=== PATIENT | male | born 1950 | race Two or more races ===

== ENCOUNTER 2017-03-16 09:57 | Outpatient (CLI) | payer MEDICARE, OTHER ==
[~2017-03-16 09:57] MED LIST: ASPIRIN81 MG ORAL; CRESTOR10 M1 ORAL; NORVASC5 MG ORAL; VITAMIN A; VITAMIN D250000 UNI1 ORAL
--- NOTE | 2017-03-16 17:26 | GI Progress Note ---
Assessment/Plan Problems: (1) Encounter for diagnostic endoscopy ICD Codes: Z01.818 - Encounter for other preprocedural examination SNOMED: 987881710, 074279102 (2) Gastric adenoma ICD Codes: D13.1 - Benign neoplasm of stomach SNOMED: 11685605, 12238492 (3) Gastric polyp ICD Codes: K31.7 - Polyp of stomach and duodenum SNOMED: 24419066 Status: stable Status Narrative Discussed with Dr. Blum. Assessment/Plan EGD scheduled 03/19/17. - NPO @ [place] day prior procedure explained to patient. Subjective Gastrointestinal/Abdominal: Reports: no symptoms Subjective s/p EGD with dx gastric adenoma here for repeat EGD Objective T 98 BP 143/78 P 71 99 RA General Appearance: no apparent distress, alert Cardiovascular: normal rate Respiratory/Chest: normal breath sounds, no respiratory distress Abdominal Exam: normal bowel sounds, non tender, soft Extremities: normal range of motion Ruth Head N.P. Mar 16, 2017 17:26
== END 2017-03-16 10:30 | disposition home or self-care (01) ==
LOC: PAN 09:57
DX: Z01.818 Encounter for other preprocedural examination (principal); D13.1 Benign neoplasm of stomach; K31.7 Polyp of stomach and duodenum
CPT/HCPCS: 99211

== ENCOUNTER 2017-03-19 07:53 | Day surgery (SDC) | payer MEDICARE, OTHER ==
[~2017-03-19] VITALS: Ht 182.9 cm; Wt 75.7 kg
[2017-03-19] VITALS (8 sets, daily range): BP systolic 119–146; BP diastolic 70–82
--- NOTE | 2017-03-19 06:22 | Anethesia Preoperative Eval ---
Anesthesia Pre-op PMH/ROS General Date of Evaluation: Mar 19, 2017 Time of Evaluation: 06:18 Anesthesiologist: john ASA Score: ASA 3 Mallampati Score Class I : Soft palate, uvula, fauces, pillars visible Class II: Soft palate, uvula, fauces visible Class III: Soft palate, base of uvula visible Class IV: Only hard plate visible Mallampati Classification: Class II Surgeon: kirstin Diagnosis: gastric adenoma Surgical Procedure: egd Anesthesia History: none Social History: smoking - ex smoker, drug use Family History: no anesthesia problems Allergies: Coded Allergies: No Known Allergies (Unverified , 12/17/15) Medications: see eMAR Past Medical History Cardiovascular: Reports: HTN, arrhythmia, other - hypercholesterolemia Gastrointestinal/Genitourinary: Reports: other - gastritis colon polyps hernia Neurologic/Psychiatric: Reports: other - substance abuse Anesthesia Pre-op Phys. Exam Physician Exam Constitutional: NAD Neurologic: CN 2-12 intact Cardiovascular: RRR Respiratory: CTA Gastrointestinal: S/NT/ND Airway Exam Mallampati Score: Class II MO: full Neck: supple TMD: 2fb ROM: full Teeth: intact Anesthesia Pre-op A/P Studies Pre-op Studies: EKG - sinus castillo Risk Assessment & Plan Assessment: gastric adenoma Plan: egd Status Change Before Surgery: No Pre-Antibiotics Drug: NERY Lopez Mar 19, 2017 06:22
--- NOTE | 2017-03-19 09:29 | Pre-Procedure Note/Attestation ---
Pre-Procedure Note/Attestation Complete Prior to Procedure Planned Procedure: not applicable Procedure Narrative: egd Indications for Procedure Pre-Operative Diagnosis: gastric polyp Attestation I attest that I discussed the nature of the procedure; its benefits; risks and complications; and alternatives (and the risks and benefits of such alternatives ), prior to the procedure, with the patient (or the patient's legal used equipment sales representative). I attest that, if there was a reasonable possibility of needing a blood transfusion, the patient (or the patient's legal used equipment sales representative) was given the [facility] standardized written summary, pursuant to the Cristóbal [place] Blood Safety Act ([place] Health and Safety Code # 1645, as amended). I attest that I re-evaluated the patient just prior to the surgery and that there has been no change in the patient's H&P, except as documented below: KRISHNA HAIRSTON Mar 19, 2017 09:29
--- NOTE | 2017-03-19 09:30 | Short Stay Surgery H&P ---
History of Present Illness History of Present Illness Chief Complaint gastric polyp HPI Clayton Ramos is a 66 year old male who was admitted on for Gastric Adenoma Patient History Allergies: Coded Allergies: No Known Allergies (Unverified , 12/17/15) PAST MEDICAL HISTORY: (1) Gastritis (2) Colon polyps (3) Gastric polyp (4) Gastric adenoma (5) Encounter for diagnostic endoscopy Past Surgeries: Social History: Medication History Scheduled Aspirin* (Aspirin*), 81 MG ORAL DAILY, (Reported) Rosuvastatin Calcium (Crestor), 10 MG ORAL DAILY, (Reported) Review of Systems Cardiovascular: Reports: no symptoms Respiratory: Reports: no symptoms Skeletal: Reports: no symptoms Gastrointestinal: Reports: no symptoms Genitourinary: Reports: no symptoms Neurologic: Reports: no symptoms Endocrine: Reports: no symptoms Hematologic: Reports: no symptoms Physical Exam Vital Signs Last Vital Signs Date Time Temp Pulse Resp B/P Pulse Ox O2 Delivery O2 Flow Rate FiO2 03/19/17 08:35 97.3 64 20 119/72 99 Room Air Skin: normal HENT: normal Heart: normal Lungs: normal Abdomen: normal Extremities: normal Plan Plan of Care egd Final Diagnosis: Attestation Are the patient's medical conditions optimized for surgery? Attestation Response: yes KRISHNA HAIRSTON Mar 19, 2017 09:30
[2017-03-19] MEDS ORDERED: Lidocaine 1% MPF 10mg/ml 5ml ONE (09:45)
[2017-03-19] MEDS ORDERED: Propofol 10mg/ml 20ml IV ONE (09:45)
[2017-03-19] MEDS ORDERED: Hydromorphone 0.5mg/0.5ml inj IVP PRN (10:00)
[2017-03-19] MEDS ORDERED: Midazolam 2mg/2ml Inj IVP PRN (10:00)
[2017-03-19] MEDS ORDERED: DiphenhydrAMINE 50mg/ml Inj IVP PRN (10:00)
[2017-03-19] MEDS ORDERED: Atropine Inj 1mg/10ml Syr IV PRN (10:00)
--- NOTE | 2017-03-19 10:06 | Endoscopy Procedure Note ---
Endoscopy Procedure Note Indication for Procedure: gastric polyp Procedures Performed: EGD Operative Findings/Diagnosis: same Specimen: yes Pt Tolerated Procedure Well: Yes Estimated Blood Loss: none Anesthesiologist: chase gonzalez Anesthesia: MAC Implant(s) used?: No 50 yrs or older w/o bx or poly: Not Applicable 10yrs. F/U not recommended: Not Applicable KRISHNA HAIRSTON Mar 19, 2017 10:06
--- NOTE | 2017-03-19 10:09 | Immediate Post-Op Evaluation ---
Immediate Post-Op Evalulation Immediate Post-Op Evalulation Procedure: egd Date of Evaluation: Mar 19, 2017 Time of Evaluation: 10:21 IV Fluids: 0.9ns 400ml Blood Products: none Estimated Blood Loss: negligible Blood Pressure Systolic: 127 Blood Pressure Diastolic: 71 Pulse Rate: 61 Respiratory Rate: 18 O2 Sat by Pulse Oximetry: 100 Temperature (Fahrenheit): 97.2 Pain Score (1-10): 0 Nausea: No Vomiting: No Complications none Patient Status: awake, reacts, patent Hydration Status: adequate Drug: NERY Lopez Mar 19, 2017 10:09
--- NOTE | 2017-03-19 10:22 | 48 Hour Post Anesthesia Eval ---
Post Anesthesia Evaluation Procedure: egd Date of Evaluation: Mar 19, 2017 Time of Evaluation: 10:25 Blood Pressure Systolic: 130 0: 70 Pulse Rate: 62 Respiratory Rate: 18 Temperature (Fahrenheit): 97.2 O2 Sat by Pulse Oximetry: 100 Airway: patent Nausea: No Vomiting: No Pain Intensity: 0 Hydration Status: adequate Cardiopulmonary Status: stable Mental Status/LOC: patient returned to baseline Post-Anesthesia Complications: none Follow-up care needed: N/A NERY OCONNOR Mar 19, 2017 10:22
--- NOTE | 2017-03-19 11:45 | Procedure Note ---
DATE OF PROCEDURE: 03/19/2017 SURGEON: Yves Blum M.D. PROCEDURE: Upper endoscopy with biopsy, polypectomy, and hemostasis. ANESTHESIA: Per . INSTRUMENT: Olympus adult flexible colonoscope. INDICATION: Gastric polyp. The procedure, risks, benefits, and possible consequences, including hemorrhage, aspiration, perforation and infection, and alternative treatments, were explained to the patient/legal guardian by Dr. Yves Blum and the patient/legal guardian understood and accepted these risks. DESCRIPTION OF PROCEDURE: After informed consent was obtained, the patient was adequately sedated, Olympus upper endoscope was advanced from mouth to the second portion of the duodenum and retroflexion maneuver was performed in the stomach. The patient has diffuse atrophic gastritis. The patient had evidence of persistent polyp in the pre-pyloric region. There was one at about 9 o'clock position. Another one about 2 o'clock position and 9 o'clock position was removed with the snare polypectomy technique and placed in and the 2 o'clock also was removed in piecemeal fashion and placed in . The patient also had evidence of some inflammatory changes in the antrum of the mucosa which was biopsied to rule out any dysplasia. Then after we did all that we used the tip of the snare to cauterize the rest of the area around the polypectomy site. The patient tolerated the procedure without any complication. SUMMERY OF FINDINGS: Atrophy, gastritis. Persistent polyps in the antrum. See above for details. RECOMMENDATIONS: Follow biopsy results and we will decide based on the results what we are going to do. One option will be for patient to come back every three months and have this piecemeal removal of the recurrent polyp but I guess at one point, if this continues to be like this, the patient might benefit from a partial antrectomy to present to the future gastric malignancy. Yves Blum M.D. DR: DUSTIN JOB#: [id number] CC:
== END 2017-03-19 11:40 | disposition home or self-care (01) ==
LOC: GAS 07:53
DX: D13.1 Benign neoplasm of stomach (principal); K29.40 Chronic atrophic gastritis without bleeding; I10 Essential (primary) hypertension; R00.1 Bradycardia, unspecified; E78.00 Pure hypercholesterolemia, unspecified; F19.10 Other psychoactive substance abuse, uncomplicated; Z86.010 Personal history of colon polyps; Z87.891 Personal history of nicotine dependence; Z79.82 Long term (current) use of aspirin
CPT/HCPCS: 43239; 43251; 93005; J2704; 94003; 94150

== ENCOUNTER 2017-03-30 09:13 | Outpatient (CLI) | payer MEDICARE, OTHER ==
[2017-03-30 09:43] VITALS: BP 126/54
--- NOTE | 2017-03-30 10:00 | GI Progress Note ---
Assessment/Plan Problems: (1) Gastric polyp ICD Codes: K31.7 - Polyp of stomach and duodenum SNOMED: 48970553 (2) Gastric adenoma ICD Codes: D13.1 - Benign neoplasm of stomach SNOMED: 45771821, 50308102 Status: stable Status Narrative Discussed with Dr. Blum. Assessment/Plan EGD and pathology reviewed with patient >> negative for H. Pylori and negative for dysplasia/metaplasia RTC prn repeat EGD x 6 months Subjective Gastrointestinal/Abdominal: Reports: no symptoms Objective Last 24 Hour Vital Signs Date Time Temp Pulse Resp B/P Pulse Ox O2 Delivery O2 Flow Rate FiO2 03/30/17 09:43 97.7 55 16 126/54 General Appearance: no apparent distress, alert Cardiovascular: normal rate, regular rhythm Respiratory/Chest: normal breath sounds, no respiratory distress Abdominal Exam: normal bowel sounds, non tender, soft Extremities: normal range of motion Objective DATE OF PROCEDURE: 03/19/2017 SURGEON: Yves Blum M.D. PROCEDURE: Upper endoscopy with biopsy, polypectomy, and hemostasis. INDICATION: Gastric polyp. SUMMERY OF FINDINGS: Atrophy, gastritis. Persistent polyps in the antrum. See above for details. RECOMMENDATIONS: Follow biopsy results and we will decide based on the results what we are going to do. One option will be for patient to come back every three months and have this piecemeal removal of the recurrent polyp but I guess at one point, if this continues to be like this, the patient might benefit from a partial antrectomy to present to the future gastric malignancy. Ruth Head N.P. Mar 30, 2017 10:00
== END 2017-03-30 09:45 | disposition home or self-care (01) ==
LOC: PAN 09:13
DX: K31.7 Polyp of stomach and duodenum (principal); D13.1 Benign neoplasm of stomach
CPT/HCPCS: 99211

== ENCOUNTER 2017-10-01 07:07 | Day surgery (SDC) | payer MEDICARE, OTHER ==
[2017-10-01] VITALS (11 sets, daily range): BP systolic 124–156; BP diastolic 76–88
[~2017-10-01] VITALS: Ht 177.8 cm; Wt 70.0 kg
--- NOTE | 2017-10-01 06:15 | Anethesia Preoperative Eval ---
Anesthesia Pre-op PMH/ROS General Date of Evaluation: Oct 01, 2017 Time of Evaluation: 06:12 Anesthesiologist: john ASA Score: ASA 3 Mallampati Score Class I : Soft palate, uvula, fauces, pillars visible Class II: Soft palate, uvula, fauces visible Class III: Soft palate, base of uvula visible Class IV: Only hard plate visible Mallampati Classification: Class II Surgeon: kirstin Diagnosis: gastric polyps Surgical Procedure: egd Anesthesia History: none Social History: smoking - former smoker, alcohol use Family History: no anesthesia problems Allergies: Coded Allergies: No Known Allergies (Unverified , 10/01/17) Medications: see eMAR Past Medical History Cardiovascular: Reports: arrhythmia, other - hypercholesterolemia Gastrointestinal/Genitourinary: Reports: other - gastric polyps, colon polyps, gastric adenoma, impotence, hemorrhoids Anesthesia Pre-op Phys. Exam Physician Exam Last Vital Signs Date Time Temp Pulse Resp B/P (MAP) Pulse Ox O2 Delivery O2 Flow Rate FiO2 10/01/17 07:52 97.0 62 18 137/86 99 Room Air Constitutional: NAD Neurologic: CN 2-12 intact Cardiovascular: RRR Respiratory: CTA Gastrointestinal: S/NT/ND Airway Exam Mallampati Score: Class II MO: full Neck: supple TMD: 2fb ROM: full Anesthesia Pre-op A/P Studies Pre-op Studies: EKG - sinus bradycardia Risk Assessment & Plan Assessment: asa3 Plan: mac Status Change Before Surgery: No Pre-Antibiotics Drug: NERY Lopez Oct 01, 2017 06:15
[2017-10-01] MEDS ORDERED: Lidocaine 1% MPF 10mg/ml 5ml ONE (07:08)
[2017-10-01] MEDS ORDERED: Propofol 200mg/20ml IV ONE (07:08)
[2017-10-01] MEDS ORDERED: NS 500ML ONE (07:08)
[2017-10-01] MEDS ORDERED: BP MED (08:01)
--- NOTE | 2017-10-01 08:42 | Pre-Procedure Note/Attestation ---
Pre-Procedure Note/Attestation Complete Prior to Procedure Planned Procedure: not applicable Procedure Narrative: EGD Indications for Procedure Pre-Operative Diagnosis: gastric polyp Attestation I attest that I discussed the nature of the procedure; its benefits; risks and complications; and alternatives (and the risks and benefits of such alternatives ), prior to the procedure, with the patient (or the patient's legal labor union business representative). I attest that, if there was a reasonable possibility of needing a blood transfusion, the patient (or the patient's legal labor union business representative) was given the [facility] standardized written summary, pursuant to the Cristóbal Ishan Blood Safety Act ([place] Health and Safety Code # 1645, as amended). I attest that I re-evaluated the patient just prior to the surgery and that there has been no change in the patient's H&P, except as documented below: KRISHNA HAIRSTON Oct 01, 2017 08:42
--- NOTE | 2017-10-01 08:43 | Short Stay Surgery H&P ---
History of Present Illness History of Present Illness Chief Complaint gastric polyp HPI Clayton Ramos is a 67 year old male who was admitted on for Gastric Polyps Patient History Allergies: Coded Allergies: No Known Allergies (Unverified , 10/01/17) PAST MEDICAL HISTORY: (1) Gastric adenoma (2) Gastric polyp (3) Colon polyps (4) Gastritis Past Surgeries: Social History: Medication History Scheduled Aspirin* (Aspirin*), 81 MG ORAL DAILY, (Reported) Rosuvastatin Calcium (Crestor), 10 MG ORAL DAILY, (Reported) Miscellaneous Medications [Bp Med], (Reported) Review of Systems Cardiovascular: Reports: no symptoms Respiratory: Reports: no symptoms Skeletal: Reports: no symptoms Gastrointestinal: Reports: no symptoms Genitourinary: Reports: no symptoms Neurologic: Reports: no symptoms Endocrine: Reports: no symptoms Hematologic: Reports: no symptoms Physical Exam Vital Signs Last Vital Signs Date Time Temp Pulse Resp B/P (MAP) Pulse Ox O2 Delivery O2 Flow Rate FiO2 10/01/17 07:52 97.0 62 18 137/86 99 Room Air Skin: normal HENT: normal Heart: normal Lungs: normal Abdomen: normal Extremities: normal Plan Plan of Care egd Final Diagnosis: Attestation Are the patient's medical conditions optimized for surgery? Attestation Response: yes KRISHNA HAIRSTON Oct 01, 2017 08:43
--- NOTE | 2017-10-01 09:05 | Endoscopy Procedure Note ---
Endoscopy Procedure Note Indication for Procedure: gastric polyp Procedures Performed: EGD Operative Findings/Diagnosis: same Specimen: yes Pt Tolerated Procedure Well: Yes Estimated Blood Loss: none Anesthesiologist: harmony Anesthesia: MAC Implant(s) used?: No 50 yrs or older w/o bx or poly: Not Applicable 10yrs. F/U not recommended: Not Applicable KRISHNA HAIRSTON Oct 01, 2017 09:05
[2017-10-01] MEDS ORDERED: fentaNYL 100 mcg/2 mL IV PRN (09:15)
[2017-10-01] MEDS ORDERED: Midazolam 2mg/2ml Inj IVP PRN (09:15)
[2017-10-01] MEDS ORDERED: Atropine Inj 1mg/10ml Syr IV PRN (09:15)
[2017-10-01] MEDS ORDERED: DiphenhydrAMINE 50mg/ml Inj IVP PRN (09:15)
--- NOTE | 2017-10-01 15:30 | Procedure Note ---
DATE OF PROCEDURE: 10/01/2017 SURGEON: Yves Blum M.D. PROCEDURE: Upper endoscopy with snare polypectomy. ANESTHESIA: Per Dr. Green. INSTRUMENT: Olympus adult flexible upper endoscope. INDICATION: Gastric polyps. The procedure, risks, benefits, and possible consequences, including hemorrhage, aspiration, perforation and infection, and alternative treatments, were explained to the patient/legal guardian by Dr. Yves Blum and the patient/legal guardian understood and accepted these risks. DESCRIPTION OF PROCEDURE: After informed consent was obtained and the patient was adequately sedated, Olympus upper endoscope was advanced from mouth into the second portion of duodenum and retroflexion was performed in the stomach. The whole area of the prepyloric region was abnormal as before, but the big polyp that was there before has completely gone. There was a prominent fold proximal to it in the antrum area suspicious for a new polyp, a little bit more proximal to the last one. We used snare polypectomy technique with a piecemeal fashion. We at least did three snare polypectomy piecemeal at this area and removed three large pieces of this polyp and then we used the tip of the snare to cauterize the rest of the area. The procedure was done without any complication. SUMMARY FINDINGS: Gastric polyp, status post polypectomy and cauterization. RECOMMENDATIONS: 1. Follow biopsy results and treat accordingly. 2. We will recommend repeat endoscopy in six months. Yves Blum M.D. DR: GLO JOB#: [id number] CC:
--- NOTE | 2017-10-01 15:41 | Immediate Post-Op Evaluation ---
Immediate Post-Op Evalulation Immediate Post-Op Evalulation Procedure: egd Date of Evaluation: Oct 01, 2017 Time of Evaluation: 09:25 IV Fluids: 550ml 0.9ns Blood Products: none Estimated Blood Loss: negligible Blood Pressure Systolic: 124 Blood Pressure Diastolic: 76 Pulse Rate: 52 Respiratory Rate: 18 O2 Sat by Pulse Oximetry: 99 Temperature (Fahrenheit): 97.3 Pain Score (1-10): 0 Nausea: No Vomiting: No Complications none Patient Status: awake, reacts, patent Hydration Status: adequate Drug: NERY Lopez Oct 01, 2017 15:41
--- NOTE | 2017-10-01 15:42 | 48 Hour Post Anesthesia Eval ---
Post Anesthesia Evaluation Procedure: egd Date of Evaluation: Oct 01, 2017 Time of Evaluation: 09:27 Blood Pressure Systolic: 124 0: 76 Pulse Rate: 52 Respiratory Rate: 18 Temperature (Fahrenheit): 97.3 O2 Sat by Pulse Oximetry: 99 Airway: patent Nausea: No Vomiting: No Pain Intensity: 0 Hydration Status: adequate Cardiopulmonary Status: stable Mental Status/LOC: patient returned to baseline Post-Anesthesia Complications: none Follow-up care needed: N/A NERY OCONNOR Oct 01, 2017 15:42
--- NOTE | 2017-10-07 15:29 | Cardiology Report ---
APPROVED REPORT EKG Measurement Heart [id number] Sinus bradycardia Otherwise normal ECG
== END 2017-10-01 10:15 | disposition home or self-care (01) ==
LOC: GAS 07:07
DX: K31.7 Polyp of stomach and duodenum (principal); Z86.010 Personal history of colon polyps; Z79.82 Long term (current) use of aspirin; Z87.891 Personal history of nicotine dependence; E78.00 Pure hypercholesterolemia, unspecified; R00.1 Bradycardia, unspecified
CPT/HCPCS: 43250; 93005; J2704; J7040; 94003; 94150

== ENCOUNTER 2017-10-14 14:16 | Outpatient (CLI) | payer MEDICARE, OTHER ==
[~2017-10-14 14:16] MED LIST changes: +BP MED
[2017-10-14 14:30] VITALS: BP 137/87
--- NOTE | 2017-10-14 15:33 | GI Progress Note ---
Assessment/Plan Problems: (1) Gastric adenoma ICD Codes: D13.1 - Benign neoplasm of stomach SNOMED: 73307538, 95569717 (2) Encounter for diagnostic endoscopy ICD Codes: Z01.818 - Encounter for other preprocedural examination SNOMED: 138014769, 896632262 (3) Gastritis ICD Codes: K29.70 - Gastritis, unspecified, without bleeding SNOMED: 2381854 (4) Gastric adenocarcinoma ICD Codes: C16.9 - Malignant neoplasm of stomach, unspecified SNOMED: 215329467 Status: stable Status Narrative Discussed with Dr. Blum. Assessment/Plan DATE OF PROCEDURE: 03/19/2017 SURGEON: Yves Blum M.D. PROCEDURE: Upper endoscopy with biopsy, polypectomy, and hemostasis. INDICATION: Gastric polyp adenoma SUMMERY OF FINDINGS: Atrophy, gastritis. Persistent polyps in the antrum. See above for details. RTC PRN Repeat EGD x 6 months. Subjective Gastrointestinal/Abdominal: Reports: no symptoms Objective T 98.2 BP 137/87 P 68 97 RA General Appearance: WD/WN, no apparent distress, alert Cardiovascular: normal rate Respiratory/Chest: normal breath sounds, no respiratory distress Abdominal Exam: normal bowel sounds, non tender, soft Extremities: normal range of motion, non-tender Ruth Head N.P. Oct 14, 2017 15:33
== END 2017-10-14 14:50 | disposition home or self-care (01) ==
LOC: PAN 14:16
DX: Z01.818 Encounter for other preprocedural examination (principal); D13.1 Benign neoplasm of stomach; K29.70 Gastritis, unspecified, without bleeding; C16.9 Malignant neoplasm of stomach, unspecified
CPT/HCPCS: 99213

== ENCOUNTER 2018-04-22 07:42 | Day surgery (SDC) | payer MEDICARE, OTHER ==
[~2018-04-22] VITALS: Ht 177.8 cm; Wt 69.9 kg
[2018-04-22] VITALS (9 sets, daily range): BP systolic 127–160; BP diastolic 75–85
[2018-04-22] MEDS ORDERED: Vit D PO (08:40)
[2018-04-22] MEDS ORDERED: NORVASC2.5 MG ORAL (08:41)
[2018-04-22] MEDS ORDERED: Lidocaine 1% MPF 10mg/ml 5ml ONE (09:00)
[2018-04-22] MEDS ORDERED: Propofol 200mg/20ml IV ONE (09:00)
[2018-04-22] MEDS ORDERED: LR 1000ml ONE (09:00)
--- NOTE | 2018-04-22 09:16 | Pre-Procedure Note/Attestation ---
Pre-Procedure Note/Attestation Complete Prior to Procedure Planned Procedure: not applicable Procedure Narrative: egd Indications for Procedure Pre-Operative Diagnosis: gastric polyp Attestation I attest that I discussed the nature of the procedure; its benefits; risks and complications; and alternatives (and the risks and benefits of such alternatives ), prior to the procedure, with the patient (or the patient's legal education courses sales representative). I attest that, if there was a reasonable possibility of needing a blood transfusion, the patient (or the patient's legal education courses sales representative) was given the [facility] standardized written summary, pursuant to the Cristóbal [place] Blood Safety Act ([place] Health and Safety Code # 1645, as amended). I attest that I re-evaluated the patient just prior to the surgery and that there has been no change in the patient's H&P, except as documented below: Yves Blum MD Apr 22, 2018 09:15
--- NOTE | 2018-04-22 09:16 | Short Stay Surgery H&P ---
History of Present Illness History of Present Illness Chief Complaint gastric polyp HPI Clayton Ramos is a 67 year old male who was admitted on for Gastric Polyps Patient History Allergies: Coded Allergies: No Known Allergies (Unverified , 10/01/17) PAST MEDICAL HISTORY: (1) Gastric polyp (2) Colon polyps (3) Gastritis (4) Gastric adenoma Medication History Scheduled Amlodipine Besylate (Norvasc), 2.5 MG ORAL DAILY, (Reported) Aspirin* (Aspirin*), 81 MG ORAL DAILY, (Reported) Rosuvastatin Calcium (Crestor), 10 MG ORAL DAILY, (Reported) [Vit D], 1 PO QWEEK, (Reported) Review of Systems Cardiovascular: Reports: no symptoms Respiratory: Reports: no symptoms Skeletal: Reports: no symptoms Gastrointestinal: Reports: no symptoms Genitourinary: Reports: no symptoms Neurologic: Reports: no symptoms Endocrine: Reports: no symptoms Physical Exam Vital Signs Last Vital Signs Date Time Temp Pulse Resp B/P (MAP) Pulse Ox O2 Delivery O2 Flow Rate FiO2 04/22/18 08:46 98.2 58 18 133/75 (94) 98 98.2 04/22/18 08:44 Room Air Skin: normal HENT: normal Heart: normal Lungs: normal Abdomen: normal Extremities: normal Plan Plan of Care egd Attestation Are the patient's medical conditions optimized for surgery? Attestation Response: yes Yves Blum MD Apr 22, 2018 09:16
--- NOTE | 2018-04-22 09:21 | Anethesia Preoperative Eval ---
Anesthesia Pre-op PMH/ROS General Date of Evaluation: Apr 22, 2018 Anesthesiologist: Kelvin ASA Score: ASA 2 Mallampati Score Class I : Soft palate, uvula, fauces, pillars visible Class II: Soft palate, uvula, fauces visible Class III: Soft palate, base of uvula visible Class IV: Only hard plate visible Mallampati Classification: Class II Surgeon: Kulwant Diagnosis: gastric polyp Surgical Procedure: EGD Anesthesia History: none Family History: no anesthesia problems Allergies: Coded Allergies: No Known Allergies (Unverified , 10/01/17) Medications: see eMAR Past Medical History Cardiovascular: Reports: HTN, other - HLD; Denies: CAD, PR, valve dz, arrhythmia Pulmonary: Denies: asthma, COPD, [place], other Gastrointestinal/Genitourinary: Denies: GERD, CRI, ESRD, other Neurologic/Psychiatric: Denies: dementia, CVA, depression/anxiety, TIA, other Endocrine: Denies: DM, hypothyroidism, steroids, other HEENT: Denies: cataract (L), cataract (R), glaucoma, [place] (L), [place] (R), other Hematology/Immune: Reports: anemia - chronic; Denies: DVT, bleeding disorder, other Musculoskeletal/Integumentary: Denies: OA, RA, DJD, DDD, edema, other PSxH Narrative: Denies Anesthesia Pre-op Phys. Exam Physician Exam Last Vital Signs Date Time Temp Pulse Resp B/P (MAP) Pulse Ox O2 Delivery O2 Flow Rate FiO2 04/22/18 08:46 98.2 58 18 133/75 (94) 98 98.2 04/22/18 08:44 Room Air Constitutional: NAD Cardiovascular: RRR Respiratory: CTA Airway Exam Mallampati Score: Class II MO: full ROM: full Anesthesia Pre-op A/P Labs see chart Studies Pre-op Studies: EKG - sb Risk Assessment & Plan Assessment: ASA II Plan: MAC Status Change Before Surgery: No Pre-Antibiotics Drug: N/A Mable Callahan MD Apr 22, 2018 09:21
[2018-04-22] MEDS ORDERED: LR 1000ml 1,000 ML IVLG SCH (09:26)
[2018-04-22] MEDS ORDERED: Labetalol 5mg/ml 20ml vial IV PRN (09:30)
[2018-04-22] MEDS ORDERED: DiphenhydrAMINE 50mg/ml Inj IVP PRN (09:30)
--- NOTE | 2018-04-22 09:46 | Endoscopy Procedure Note ---
Endoscopy Procedure Note General Indication for Procedure: gastric polyp Procedures Performed: EGD Operative Findings/Diagnosis: same Specimen: yes Pt Tolerated Procedure Well: Yes Estimated Blood Loss: none Anesthesia Anesthesiologist: mariam Anesthesia: MAC Inserted Devices Implant(s) used?: No GI Core Measures 50 yrs or older w/o bx or poly: Not Applicable 10yrs. F/U not recommended: Not Applicable Yves Blum MD Apr 22, 2018 09:46
--- NOTE | 2018-04-22 09:53 | Immediate Post-Op Evaluation ---
Immediate Post-Op Evalulation Immediate Post-Op Evalulation Procedure: EGD Date of Evaluation: Apr 22, 2018 Time of Evaluation: 09:55 IV Fluids: 200 Blood Products: 0 Estimated Blood Loss: 0 Urinary Output: 0 Blood Pressure Systolic: 127 Blood Pressure Diastolic: 75 Pulse Rate: 60 Respiratory Rate: 16 O2 Sat by Pulse Oximetry: 100 Temperature (Fahrenheit): 97.4 Pain Score (1-10): 0 Nausea: No Vomiting: No Complications 0 Patient Status: awake, reacts, patent, none Hydration Status: adequate Drug: N/A Mable Callahan MD Apr 22, 2018 09:53
--- NOTE | 2018-04-22 09:54 | 48 Hour Post Anesthesia Eval ---
Post Anesthesia Evaluation Procedure: EGD Date of Evaluation: Apr 22, 2018 Airway: patent Nausea: No Vomiting: No Pain Intensity: 0 Hydration Status: adequate Cardiopulmonary Status: at baseline Mental Status/LOC: patient returned to baseline Post-Anesthesia Complications: 0 Follow-up care needed: ready to discharge Mable Callahan MD Apr 22, 2018 09:54
--- NOTE | 2018-04-22 18:15 | Procedure Note ---
DATE OF PROCEDURE: 04/22/2018 SURGEON: Yves Blum M.D. ANESTHESIOLOGIST: Dr. Warren. PROCEDURE: Upper endoscopy with biopsy and polypectomy. ANESTHESIA: Per Dr. Warren. INSTRUMENT: Olympus adult flexible upper endoscope. INDICATION: Gastric polyps. The procedure, risks, benefits, and possible consequences, including hemorrhage, aspiration, perforation and infection, and alternative treatments, were explained to the patient/legal guardian by Dr. Yves Blum and the patient/legal guardian understood and accepted these risks. DESCRIPTION OF PROCEDURE: After informed consent was obtained and the patient was adequately sedated, Olympus upper endoscope was advanced from the mouth into the second portion of duodenum and retroflexion was performed in the stomach. The patient had evidence of atrophic gastritis. There were at least 3 polyps in the prepyloric region. Comparing to prior studies, they are much smaller, but we did 3 snare polypectomy technique. These polyps roughly measured about 8-9 mm each. Then using biopsy forceps, we biopsied the area around the ulcer. Then using a snare tube, we cauterized as much as we could include around this area of the antrum. Apparently, this area keeps growing polyps. The patient tolerated the procedure well without any complication. SUMMARY OF FINDINGS: 1. Atrophic gastritis. 2. Three gastric polyps removed with snare polypectomy technique. See above for details. RECOMMENDATIONS: 1. Follow up biopsy results and treat accordingly. 2. If the biopsy did not show any evidence of any pathology including dysplasia, we will recommend repeat endoscopy in 6 months. Yves Blum M.D. DR: JESSIE JOB#: [id number] CC:
--- NOTE | 2018-04-24 14:25 | Cardiology Report ---
APPROVED REPORT EKG Measurement Heart [id number] Sinus bradycardia Otherwise normal ECG
== END 2018-04-22 11:40 | disposition home or self-care (01) ==
LOC: GAS 07:42
DX: K31.7 Polyp of stomach and duodenum (principal); K29.40 Chronic atrophic gastritis without bleeding; Z87.19 Personal history of other diseases of the digestive system; I10 Essential (primary) hypertension; E78.5 Hyperlipidemia, unspecified; D64.9 Anemia, unspecified; Z79.82 Long term (current) use of aspirin; Z86.010 Personal history of colon polyps
CPT/HCPCS: 43251; 93005; J2704; J7120; 94003; 94150

== ENCOUNTER 2018-05-03 08:51 | Outpatient (CLI) | payer MEDICARE, OTHER ==
[~2018-05-03 08:51] MED LIST changes: +NORVASC2.5 MG ORAL; +Vit D PO
[2018-05-03 09:31] VITALS: BP 137/77
--- NOTE | 2018-05-03 09:48 | GI Progress Note ---
Assessment/Plan Problems: (1) Gastritis ICD Codes: K29.70 - Gastritis, unspecified, without bleeding SNOMED: 3020651 (2) Gastric adenoma ICD Codes: D13.1 - Benign neoplasm of stomach SNOMED: 47797623, 38533402 (3) Gastric adenocarcinoma ICD Codes: C16.9 - Malignant neoplasm of stomach, unspecified SNOMED: 436833719 Status: stable Status Narrative Seen with Dr. Blum. Assessment/Plan start Dexilant repeat EGD x 3 months The patient was seen and examined at bedside and all new and available data was reviewed in the patients chart. I agree with the above findings, impression and plan. (Patient seen earlier today. Signature stamp does not reflect patient encounter time.). - Yves Blum MD Subjective Gastrointestinal/Abdominal: Reports: no symptoms Objective Last 24 Hour Vital Signs Date Time Temp Pulse Resp B/P (MAP) Pulse Ox O2 Delivery O2 Flow Rate FiO2 05/03/18 09:31 98.0 70 18 137/77 99 98.0 General Appearance: WD/WN, no apparent distress, alert Cardiovascular: normal rate Respiratory/Chest: normal breath sounds, no respiratory distress Abdominal Exam: normal bowel sounds, non tender, soft Extremities: normal range of motion, non-tender Vasyl Head THREAD SEPARATOR May 03, 2018 09:48
== END 2018-05-03 09:25 | disposition home or self-care (01) ==
LOC: PAN 08:51
DX: K29.70 Gastritis, unspecified, without bleeding (principal); D13.1 Benign neoplasm of stomach; C16.9 Malignant neoplasm of stomach, unspecified
CPT/HCPCS: 99213

== ENCOUNTER 2018-08-26 07:18 | Day surgery (SDC) | payer MEDICARE, BC ==
[~2018-08-26] VITALS: Ht 170 cm; Wt 69.9 kg
[2018-08-26] VITALS (9 sets, daily range): BP systolic 130–150; BP diastolic 70–81
[~2018-08-26 07:18] MED LIST changes: +LR 1000ml 1,000 ML IVLG SCH
[2018-08-26] MEDS ORDERED: Propofol 200mg/20ml IV ONE (09:00)
[2018-08-26] MEDS ORDERED: LR 1000ml ONE (09:00)
--- NOTE | 2018-08-26 09:06 | Pre-Procedure Note/Attestation ---
Pre-Procedure Note/Attestation Complete Prior to Procedure Planned Procedure: not applicable Procedure Narrative: egd Indications for Procedure Pre-Operative Diagnosis: gastric polyp Attestation I attest that I discussed the nature of the procedure; its benefits; risks and complications; and alternatives (and the risks and benefits of such alternatives ), prior to the procedure, with the patient (or the patient's legal car sales representative). I attest that, if there was a reasonable possibility of needing a blood transfusion, the patient (or the patient's legal car sales representative) was given the [facility] standardized written summary, pursuant to the Cristóbal Ishan Blood Safety Act ([place] Health and Safety Code # 1645, as amended). I attest that I re-evaluated the patient just prior to the surgery and that there has been no change in the patient's H&P, except as documented below: Yves Bulm MD Aug 26, 2018 09:06
--- NOTE | 2018-08-26 09:07 | Short Stay Surgery H&P ---
History of Present Illness History of Present Illness Chief Complaint see recent office note HPI Aislinn Yousif Vega is a 68 year old male who was admitted on for Gastric Polyps Patient History Allergies: Coded Allergies: No Known Allergies (Unverified , 10/01/17) Medication History Scheduled Amlodipine Besylate (Norvasc), 2.5 MG ORAL DAILY, (Reported) Aspirin* (Aspirin*), 81 MG ORAL DAILY, (Reported) Rosuvastatin Calcium (Crestor), 10 MG ORAL DAILY, (Reported) [Vit D], 1 PO QWEEK, (Reported) Physical Exam Vital Signs Last Vital Signs Date Time Temp Pulse Resp B/P (MAP) Pulse Ox O2 Delivery O2 Flow Rate FiO2 08/26/18 08:16 97.2 66 20 134/76 98 Room Air Plan Attestation Are the patient's medical conditions optimized for surgery? Yves Blum MD Aug 26, 2018 09:07
--- NOTE | 2018-08-26 09:31 | Endoscopy Procedure Note ---
Endoscopy Procedure Note General Indication for Procedure: gastric polyp Procedures Performed: EGD Operative Findings/Diagnosis: same Specimen: yes Pt Tolerated Procedure Well: Yes Estimated Blood Loss: none Anesthesia Anesthesiologist: Cirilo Anesthesia: MAC Inserted Devices Implant(s) used?: No GI Core Measures 50 yrs or older w/o bx or poly: Not Applicable 10yrs. F/U not recommended: Not Applicable Yves Blum MD Aug 26, 2018 09:31
--- NOTE | 2018-08-26 09:33 | Immediate Post-Op Evaluation ---
Immediate Post-Op Evalulation Immediate Post-Op Evalulation Procedure: egd Date of Evaluation: Aug 26, 2018 Time of Evaluation: 09:33 Nausea: No Vomiting: No FanyrillCrystal millard CRNA Aug 26, 2018 09:33
--- NOTE | 2018-08-26 09:34 | Anethesia Preoperative Eval ---
Anesthesia Pre-op PMH/ROS General Date of Evaluation: Aug 26, 2018 Time of Evaluation: 09:00 ASA Score: ASA 2 Mallampati Score Class I : Soft palate, uvula, fauces, pillars visible Class II: Soft palate, uvula, fauces visible Class III: Soft palate, base of uvula visible Class IV: Only hard plate visible Mallampati Classification: Class II Allergies: Coded Allergies: No Known Allergies (Unverified , 10/01/17) Patient NPO?: Yes Anesthesia Pre-op Phys. Exam Physician Exam Last Vital Signs Date Time Temp Pulse Resp B/P (MAP) Pulse Ox O2 Delivery O2 Flow Rate FiO2 08/26/18 08:16 97.2 66 20 134/76 98 Room Air Airway Exam Mallampati Score: Class I Crystal Ash CRNA Aug 26, 2018 09:34
--- NOTE | 2018-08-26 12:12 | 48 Hour Post Anesthesia Eval ---
Post Anesthesia Evaluation Procedure: egd Date of Evaluation: Aug 26, 2018 Time of Evaluation: 12:12 Nausea: No Vomiting: No Elkin Gil MD Aug 26, 2018 12:12
--- NOTE | 2018-08-26 19:00 | Procedure Note ---
DATE OF PROCEDURE: 08/26/2018 SURGEON: Yves Blum M.D. PROCEDURE: Upper endoscopy, polypectomy, and biopsy. ANESTHESIA: Per . INSTRUMENT: Olympus adult flexible upper endoscope. INDICATION: Gastric polyp. The procedure, risks, benefits, and possible consequences, including hemorrhage, aspiration, perforation and infection, and alternative treatments, were explained to the patient/legal guardian by Dr. Yves Blum and the patient/legal guardian understood and accepted these risks. DESCRIPTION OF PROCEDURE: After informed consent was obtained and the patient was adequately sedated, Olympus upper endoscope was advanced from the mouth into the second portion of the duodenum and retroflexion was performed in the stomach. The patient had polypoid growth at the prepyloric region, better than the last procedure, still there were at least three polyps growing in that area. The patient also had evidence of severe atrophic gastritis. Then, we started our polypectomy technique using a snare. We did a hot snare polypectomy of the three spots of the prepyloric region. Then after those three polyps were removed, we used the tip of the snare to cauterize the rest of the area. Then we also did a biopsy, random biopsy of the antrum to rule out H. pylori infection and also to evaluate for atypia. At this time, the scope was retrieved and the procedure was terminated. SUMMARY OF FINDINGS: 1. Gastric polyps, status post polypectomy and cauterization. 2. Atrophic gastritis, status post biopsy. RECOMMENDATIONS: Follow up biopsy results and treat accordingly. We will recommend repeat endoscopy in six months. Yves Blum M.D. DR: GLO JOB#: [id number] CC:
== END 2018-08-26 11:20 | disposition home or self-care (01) ==
LOC: GAS 07:18
DX: K29.40 Chronic atrophic gastritis without bleeding (principal); D13.1 Benign neoplasm of stomach; Z79.82 Long term (current) use of aspirin
CPT/HCPCS: 43251; 93005; J2704; 94003; 94150

== ENCOUNTER 2018-09-06 09:26 | Outpatient (CLI) | payer MEDICARE, BC ==
[~2018-09-06 09:26] MED LIST changes: -LR 1000ml 1,000 ML IVLG SCH
--- NOTE | 2018-09-06 10:54 | GI Progress Note ---
Assessment/Plan Problems: (1) Gastric adenoma ICD Codes: D13.1 - Benign neoplasm of stomach SNOMED: 98312025, 85424884 (2) Gastritis ICD Codes: K29.70 - Gastritis, unspecified, without bleeding SNOMED: 8806158 (3) Gastric polyp ICD Codes: K31.7 - Polyp of stomach and duodenum SNOMED: 69454139 Status: stable Status Narrative Seen with Dr. Blum. Assessment/Plan SUMMARY OF FINDINGS reviewed with patient: 1. Gastric polyps, status post polypectomy and cauterization. >> tubular adenoma 2. Atrophic gastritis, status post biopsy. >> negative for H. Pylori RECOMMENDATIONS: Follow up biopsy results and treat accordingly. repeat EGD in December 2018 The patient was seen and examined at bedside and all new and available data was reviewed in the patients chart. I agree with the above findings, impression and plan. (Patient seen earlier today. Signature stamp does not reflect patient encounter time.). - Yves Blum MD Subjective Gastrointestinal/Abdominal: Reports: no symptoms Objective T 98.5 BP 144/80 P 75 98 RA General Appearance: WD/WN, no apparent distress, alert Cardiovascular: normal rate Respiratory/Chest: normal breath sounds, no respiratory distress Abdominal Exam: normal bowel sounds, non tender, soft Extremities: normal range of motion, non-tender Vasyl Head NP Sep 06, 2018 10:54
== END 2018-09-06 09:56 | disposition home or self-care (01) ==
LOC: PAN 09:26
DX: D13.1 Benign neoplasm of stomach (principal); K29.70 Gastritis, unspecified, without bleeding
CPT/HCPCS: 99212

== ENCOUNTER 2019-01-27 08:28 | Day surgery (SDC) | payer MEDICARE, BC ==
[2019-01-27] VITALS (10 sets, daily range): BP systolic 119–159; BP diastolic 53–84
[~2019-01-27] VITALS: Ht 160 cm; Wt 66.0 kg
--- NOTE | 2019-01-27 09:30 | Anethesia Preoperative Eval ---
Anesthesia Pre-op PMH/ROS General Date of Evaluation: January 27, 2019 Time of Evaluation: 10:10 Anesthesiologist: Tish Larsen CRNA ASA Score: ASA 2 Mallampati Score Class I : Soft palate, uvula, fauces, pillars visible Class II: Soft palate, uvula, fauces visible Class III: Soft palate, base of uvula visible Class IV: Only hard plate visible Mallampati Classification: Class II Surgeon: Kulwant Diagnosis: Recurrent gastric polyps Surgical Procedure: EGD diagnostic Anesthesia History: none Social History: smoking Family History: no anesthesia problems Allergies: Coded Allergies: No Known Allergies (Unverified , 01/27/19) Medications: see eMAR Patient NPO?: Yes NPO Date: January 27, 2019 NPO Time: 00:00 Past Medical History Cardiovascular: Reports: HTN, arrhythmia, other - hypercholesterolemia; Denies: CAD, SD, valve dz Pulmonary: Denies: asthma, COPD, NORMA, other Gastrointestinal/Genitourinary: Reports: GERD, other - gastric adenocarcinoma, hemorrhoids; Denies: CRI, ESRD Neurologic/Psychiatric: Denies: dementia, CVA, depression/anxiety, TIA, other Endocrine: Denies: DM, hypothyroidism, steroids, other HEENT: Denies: cataract (L), cataract (R), glaucoma, SOKAOGON (L), SOKAOGON (R), other Hematology/Immune: Denies: anemia, DVT, bleeding disorder, other Musculoskeletal/Integumentary: Reports: OA; Denies: RA, DJD, DDD, edema, other PMH Narrative: as noted above PSxH Narrative: abdominal hernia repair, colonoscopy Anesthesia Pre-op Phys. Exam Physician Exam Last Vital Signs Date Time Temp Pulse Resp B/P (MAP) Pulse Ox O2 Delivery O2 Flow Rate FiO2 01/27/19 08:56 Room Air 01/27/19 08:55 97.8 60 14 139/80 97 Constitutional: NAD Neurologic: CN 2-12 intact Cardiovascular: RRR Respiratory: CTA Gastrointestinal: S/NT/ND Airway Exam Mallampati Score: Class II MO: full Neck: stiff TMD: > 3 FB ROM: full Teeth: intact Anesthesia Pre-op A/P Studies Pre-op Studies: EKG - Sinus bradycardia Risk Assessment & Plan Assessment: ASA 2, ok to proceed Plan: MAC Status Change Before Surgery: No Pre-Antibiotics Given Within 1 Hr of Incision: No Tish Larsen CRNA January 27, 2019 09:30
[2019-01-27] MEDS ORDERED: Propofol 200mg/20ml IV ONE ×2 (10:04→14:26)
--- NOTE | 2019-01-27 10:15 | Pre-Procedure Note/Attestation ---
Pre-Procedure Note/Attestation Complete Prior to Procedure Planned Procedure: not applicable Procedure Narrative: EGD Indications for Procedure Pre-Operative Diagnosis: gastric polyp Attestation I attest that I discussed the nature of the procedure; its benefits; risks and complications; and alternatives (and the risks and benefits of such alternatives ), prior to the procedure, with the patient (or the patient's legal outside energy sales representatives). I attest that, if there was a reasonable possibility of needing a blood transfusion, the patient (or the patient's legal outside energy sales representatives) was given the [facility] standardized written summary, pursuant to the Cristóbal Ishan Blood Safety Act ([place] Health and Safety Code # 1645, as amended). I attest that I re-evaluated the patient just prior to the surgery and that there has been no change in the patient's H&P, except as documented below: Yves Blum MD January 27, 2019 10:15
--- NOTE | 2019-01-27 10:48 | Endoscopy Procedure Note ---
Endoscopy Procedure Note General Indication for Procedure: gastric polyp Procedures Performed: EGD Operative Findings/Diagnosis: same Specimen: yes Pt Tolerated Procedure Well: Yes Estimated Blood Loss: none Anesthesia Anesthesiologist: wellington Anesthesia: MAC Inserted Devices Implant(s) used?: No GI Core Measures 50 yrs or older w/o bx or poly: Not Applicable 10yrs. F/U not recommended: Not Applicable Yves Blum MD January 27, 2019 10:48
--- NOTE | 2019-01-27 10:52 | Immediate Post-Op Evaluation ---
Immediate Post-Op Evalulation Immediate Post-Op Evalulation Procedure: EGD, polypectomy Date of Evaluation: January 27, 2019 Time of Evaluation: 10:46 IV Fluids: 0.9 NS 600 ml Blood Pressure Systolic: 119 Blood Pressure Diastolic: 68 Pulse Rate: 54 Respiratory Rate: 16 O2 Sat by Pulse Oximetry: 100 Temperature (Fahrenheit): 97.1 Pain Score (1-10): 0 Nausea: No Vomiting: No Complications none Patient Status: awake, patent Hydration Status: adequate Given Within 1 Hr of Incision: Tish Lynn CRNA January 27, 2019 10:52
--- NOTE | 2019-01-27 12:27 | 48 Hour Post Anesthesia Eval ---
Post Anesthesia Evaluation Procedure: EGD, polypectomy Date of Evaluation: January 27, 2019 Time of Evaluation: 12:25 Blood Pressure Systolic: 149 0: 83 Pulse Rate: 57 Respiratory Rate: 19 Temperature (Fahrenheit): 97.2 O2 Sat by Pulse Oximetry: 98 Airway: patent Nausea: No Vomiting: No Pain Intensity: 0 Hydration Status: adequate Cardiopulmonary Status: Stable Mental Status/LOC: patient returned to baseline Follow-up Care/Observations: per GI Post-Anesthesia Complications: NONE Follow-up care needed: N/A Tish Larsen CRNA January 27, 2019 12:27
[2019-01-27] MEDS ORDERED: NS 500ML ONE (14:26)
[2019-01-27] MEDS ORDERED: Lidocaine 1% MPF 10mg/ml 5ml ONE (14:26)
--- NOTE | 2019-01-27 17:15 | Procedure Note ---
DATE OF PROCEDURE: 01/27/2019 SURGEON: Yves Blum M.D. PROCEDURE: Upper endoscopy with polypectomy. ANESTHESIA: Per MELI Winston. INSTRUMENT: Olympus adult flexible upper endoscope. INDICATION: Gastric polyps. REASON FOR PROCEDURE: The procedure, risks, benefits, and possible consequences, including hemorrhage, aspiration, perforation and infection, and alternative treatments, were explained to the patient/legal guardian by Dr. Yves Blum and the patient/legal guardian understood and accepted these risks. PROCEDURE IN DETAIL: After informed consent was obtained and the patient was adequately sedated, Olympus upper endoscope was advanced from mouth into the second portion of the duodenum and retroflexion was performed in the stomach. The patient had multiple polyps in the antrum in the prepyloric region. These are adenomatous polyps. Using a snare polypectomy technique, most of these polyps were removed and the rest of the area around it was cauterized with the tip of the snare. The patient tolerated the procedure very well without any complication. SUMMARY OF FINDINGS: Gastric polyps, status post polypectomy. RECOMMENDATIONS: 1. Follow path. 2. We will recommend repeat endoscopy in 6 months. Yves Blum M.D. DR: ANN JOB#: [id number] CC:
--- NOTE | 2019-01-31 12:51 | Short Stay Surgery H&P ---
History of Present Illness History of Present Illness Chief Complaint gastric polyp HPI Claytno Vega is a 68 year old male who was admitted on for Recurrent Gastric Polyps Patient History Allergies: Coded Allergies: No Known Allergies (Unverified , 01/27/19) PAST MEDICAL HISTORY: (1) Encounter for diagnostic endoscopy (2) Colon polyps (3) Gastric adenocarcinoma (4) Gastric polyp (5) Gastritis (6) Gastric adenoma Medication History Scheduled Amlodipine Besylate (Norvasc), 2.5 MG ORAL DAILY, (Reported) Aspirin* (Aspirin*), 81 MG ORAL DAILY, (Reported) Rosuvastatin Calcium (Crestor), 10 MG ORAL DAILY, (Reported) [Vit D], 1 PO QWEEK, (Reported) Review of Systems Cardiovascular: Reports: no symptoms Respiratory: Reports: no symptoms Skeletal: Reports: no symptoms Gastrointestinal: Reports: no symptoms Genitourinary: Reports: no symptoms Neurologic: Reports: no symptoms Endocrine: Reports: no symptoms Physical Exam Vital Signs Last Vital Signs Date Time Temp Pulse Resp B/P (MAP) Pulse Ox O2 Delivery O2 Flow Rate FiO2 01/27/19 12:27 57 19 98 01/27/19 12:00 159/77 Room Air 01/27/19 11:40 97.2 01/27/19 10:55 3 Skin: normal HENT: normal Heart: normal Lungs: normal Abdomen: normal Extremities: normal Plan Plan of Care egd Attestation Are the patient's medical conditions optimized for surgery? Attestation Response: yes Yves Blum MD January 31, 2019 12:51
== END 2019-01-27 12:15 | disposition home or self-care (01) ==
LOC: GAS 08:28
DX: K31.7 Polyp of stomach and duodenum (principal); I10 Essential (primary) hypertension; E78.00 Pure hypercholesterolemia, unspecified; K21.9 Gastro-esophageal reflux disease without esophagitis; M19.90 Unspecified osteoarthritis, unspecified site; Z85.00 Personal history of malignant neoplasm of unspecified digestive organ; R00.1 Bradycardia, unspecified
CPT/HCPCS: 43251; J2704; 94003; 94150

== ENCOUNTER 2019-02-07 09:23 | Outpatient (CLI) | payer MEDICARE, BC ==
[2019-02-07] MEDS ORDERED: VITAMIN B COMP1 EAC2 ORAL (09:46)
[2019-02-07] MEDS ORDERED: PRILOSEC OTC20 MG ORAL (09:46)
[2019-02-07] MEDS ORDERED: VITAMIN D250000 UNI1 ORAL (09:46)
--- NOTE | 2019-02-07 09:51 | General Progress Note ---
Assessment/Plan Problem List: (1) Gastritis ICD Codes: K29.70 - Gastritis, unspecified, without bleeding SNOMED: 3285067 (2) Gastric polyp ICD Codes: K31.7 - Polyp of stomach and duodenum SNOMED: 71581945 (3) Gastric adenoma ICD Codes: D13.1 - Benign neoplasm of stomach SNOMED: 06200879, 81041166 (4) Colon polyps ICD Codes: K63.5 - Polyp of colon SNOMED: 42289774 Assessment/Plan: path reviewed with the patient plan repeat EGD in 6 months ppi daily Subjective ROS Limited/Unobtainable: Yes Allergies: Coded Allergies: No Known Allergies (Unverified , 01/27/19) Objective General Appearance: alert EENT: normal ENT inspection Neck: supple Cardiovascular: normal rate Respiratory/Chest: lungs clear Abdomen: normal bowel sounds, non tender, soft Yves Blum MD February 07, 2019 09:50
[2019-02-07 12:58] VITALS: BP 134/75
== END 2019-02-07 14:41 | disposition home or self-care (01) ==
LOC: PAN 09:23
DX: K29.70 Gastritis, unspecified, without bleeding (principal); K31.7 Polyp of stomach and duodenum; D13.1 Benign neoplasm of stomach; K63.5 Polyp of colon

== ENCOUNTER → 2019-08-04 | Day surgery (SDC) | payer MEDICARE, BC ==
[2019-08-04] VITALS (7 sets, daily range): BP systolic 136–154; BP diastolic 72–80
[~2019-08-04] VITALS: Ht 170.2 cm; Wt 66.0 kg
[~2019-08-04] MED LIST changes: +Atropine Inj 1mg/10ml Syr IV PRN; +DiphenhydrAMINE 50mg/ml Inj IVP PRN; +LR 1000ml 1,000 ML IVLG SCH; +LR 1000ml ONE; +Lidocaine 1% MPF 10mg/ml 5ml ONE; +Midazolam 2mg/2ml Inj IVP PRN; +PRILOSEC OTC20 MG ORAL; +Propofol 200mg/20ml IV ONE; +VITAMIN B COMP1 EAC2 ORAL; +fentaNYL 100 mcg/2 mL IV PRN
--- NOTE | 2019-08-04 08:39 | Anethesia Preoperative Eval ---
Anesthesia Pre-op PMH/ROS General Date of Evaluation: Aug 04, 2019 Time of Evaluation: 08:37 Anesthesiologist: john ASA Score: ASA 3 Mallampati Score Class I : Soft palate, uvula, fauces, pillars visible Class II: Soft palate, uvula, fauces visible Class III: Soft palate, base of uvula visible Class IV: Only hard plate visible Mallampati Classification: Class II Surgeon: kirstin Diagnosis: gastric polyps Surgical Procedure: egd Anesthesia History: none Social History: current smoker, alcohol use Family History: no anesthesia problems Allergies: Coded Allergies: No Known Allergies (Unverified , 08/04/19) Medications: see eMAR Patient NPO?: Yes Past Medical History Cardiovascular: Reports: HTN, arrhythmia, other - hypercholesterolemia Gastrointestinal/Genitourinary: Reports: other - gastritis, gastric adenoma, colon polyps HEENT: Reports: other - decreased visual acuity Anesthesia Pre-op Phys. Exam Physician Exam Last Vital Signs Date Time Temp Pulse Resp B/P (MAP) Pulse Ox O2 Delivery O2 Flow Rate FiO2 08/04/19 07:51 Room Air 08/04/19 07:48 97.0 53 18 144/78 98 Constitutional: NAD Neurologic: CN 2-12 intact Cardiovascular: RRR Respiratory: CTA Gastrointestinal: S/NT/ND Airway Exam Mallampati Score: Class II MO: limited Neck: flexible TMD: 2fb ROM: limited Anesthesia Pre-op A/P Studies Pre-op Studies: EKG - sinus bradycardia Risk Assessment & Plan Assessment: asa3 Plan: mac Status Change Before Surgery: No Pre-Antibiotics Drug: Chuyita Rhoades MD Aug 04, 2019 08:39
--- NOTE | 2019-08-04 09:06 | Short Stay Surgery H&P ---
History of Present Illness History of Present Illness Chief Complaint gastric polyp HPI Davoud Yousif Vega is a 69 year old male who was admitted on for Screening Patient History Allergies: Coded Allergies: No Known Allergies (Unverified , 08/04/19) PAST MEDICAL HISTORY: (1) Colon polyps (2) Gastric adenoma (3) Gastritis (4) Gastric polyp Medication History Scheduled Amlodipine Besylate (Norvasc), 2.5 MG ORAL DAILY, (Reported) Ergocalciferol (Vitamin D2)* (Vitamin D*), 50,000 UNIT ORAL ONCE A WEEK, ( Reported) Omeprazole Magnesium (Prilosec Otc), 20 MG ORAL DAILY, (Reported) Rosuvastatin Calcium (Crestor), 10 MG ORAL DAILY, (Reported) Vitamin B Complex (Vitamin B Complex), 1 CAP ORAL DAILY, (Reported) Review of Systems Cardiovascular: Reports: no symptoms Respiratory: Reports: no symptoms Skeletal: Reports: no symptoms Gastrointestinal: Reports: no symptoms Genitourinary: Reports: no symptoms Neurologic: Reports: no symptoms Endocrine: Reports: no symptoms Hematologic: Reports: no symptoms Physical Exam Vital Signs Last Vital Signs Date Time Temp Pulse Resp B/P (MAP) Pulse Ox O2 Delivery O2 Flow Rate FiO2 08/04/19 07:51 Room Air 08/04/19 07:48 97.0 53 18 144/78 98 Skin: normal HENT: normal Heart: normal Lungs: normal Abdomen: normal Extremities: normal Plan Plan of Care egd Attestation Are the patient's medical conditions optimized for surgery? Attestation Response: yes Yves Blum MD Aug 04, 2019 09:06
--- NOTE | 2019-08-04 09:06 | Pre-Procedure Note/Attestation ---
Pre-Procedure Note/Attestation Complete Prior to Procedure Planned Procedure: not applicable Procedure Narrative: gastric polyp Indications for Procedure Pre-Operative Diagnosis: egd Attestation I attest that I discussed the nature of the procedure; its benefits; risks and complications; and alternatives (and the risks and benefits of such alternatives ), prior to the procedure, with the patient (or the patient's legal termite control service representative). I attest that, if there was a reasonable possibility of needing a blood transfusion, the patient (or the patient's legal termite control service representative) was given the [facility] standardized written summary, pursuant to the Cristóbal Ishan Blood Safety Act ([place] Health and Safety Code # 1645, as amended). I attest that I re-evaluated the patient just prior to the surgery and that there has been no change in the patient's H&P, except as documented below: Yves Blum MD Aug 04, 2019 09:06
--- NOTE | 2019-08-04 09:26 | Endoscopy Procedure Note ---
Endoscopy Procedure Note General Indication for Procedure: gastric polyp Procedures Performed: EGD Operative Findings/Diagnosis: same Specimen: yes Pt Tolerated Procedure Well: Yes Estimated Blood Loss: none Anesthesia Anesthesiologist: john Anesthesia: MAC Inserted Devices Implant(s) used?: No GI Core Measures 50 yrs or older w/o bx or poly: Not Applicable 10yrs. F/U recommended: Not Applicable Yves Blum MD Aug 04, 2019 09:26
--- NOTE | 2019-08-04 09:43 | Immediate Post-Op Evaluation ---
Immediate Post-Op Evalulation Immediate Post-Op Evalulation Procedure: egd w/bx Date of Evaluation: Aug 04, 2019 Time of Evaluation: 09:40 IV Fluids: 500ml lr Blood Products: none Estimated Blood Loss: negligible Blood Pressure Systolic: 132 Blood Pressure Diastolic: 62 Pulse Rate: 68 Respiratory Rate: 18 O2 Sat by Pulse Oximetry: 100 Temperature (Fahrenheit): 97.8 Pain Score (1-10): 0 Nausea: No Vomiting: No Complications none Patient Status: awake, reacts, patent Hydration Status: adequate Drug: Chuyita Rhoades MD Aug 04, 2019 09:43
--- NOTE | 2019-08-04 09:44 | 48 Hour Post Anesthesia Eval ---
Post Anesthesia Evaluation Procedure: egd w/bx Date of Evaluation: Aug 04, 2019 Time of Evaluation: 09:43 Blood Pressure Systolic: 138 0: 78 Pulse Rate: 51 Respiratory Rate: 18 Temperature (Fahrenheit): 97.8 O2 Sat by Pulse Oximetry: 100 Airway: patent Nausea: No Vomiting: No Pain Intensity: 0 Hydration Status: adequate Cardiopulmonary Status: stable Mental Status/LOC: patient returned to baseline Post-Anesthesia Complications: none Follow-up care needed: N/A Chuyita Mariscal MD Aug 04, 2019 09:44
--- NOTE | 2019-08-04 15:45 | Procedure Note ---
DATE OF PROCEDURE: 08/04/2019 SURGEON: Yves Blum M.D. PROCEDURE: Upper endoscopy with polypectomy, biopsy. ANESTHESIA: Per Dr. Green. INSTRUMENT: Olympus adult flexible upper endoscope. INDICATION: Adenomatous gastric polyps. REASON FOR PROCEDURE: The procedure, risks, benefits, and possible consequences, including hemorrhage, aspiration, perforation and infection, and alternative treatments, were explained to the patient/legal guardian by Dr. Yves Blum and the patient/legal guardian understood and accepted these risks. PROCEDURE IN DETAIL: After informed consent was obtained and the patient was adequately sedated, first Olympus upper endoscope was advanced from mouth into the second portion of the duodenum and retroflexion was performed in the stomach. The patient had a sessile polyp in the prepyloric region, much much better from prior procedures. The patient had severe atrophic gastritis. GE junction at about 40 cm from the incisors. Using the snare polypectomy technique, we did another piecemeal removal of the remaining polyps in the prepyloric region. Then, the rest of it was cauterized with the tip of the snare. Then, we biopsied randomly the antrum. At this time, the upper endoscope was retrieved and procedure was terminated. 1. gastric polyp much better from prior procedures status post snare polypectomy and biopsy of the antrum. 2. Severe atrophic gastritis. RECOMMENDATIONS: 1. Follow pathology. 2. Recommend repeat endoscopy 6 to 9 months. 3. We discussed with the patient in the office. Yves Blum M.D. DR: Margie JOB#: [id number] CC:
--- NOTE | 2019-08-05 14:50 | Cardiology Report ---
APPROVED REPORT EKG Measurement Heart [id number] IN 176P64 [id number] Sinus bradycardia Otherwise normal ECG
== END | disposition home or self-care (01) ==
LOC: GAS 07:16
DX: K31.7 Polyp of stomach and duodenum (principal); K29.70 Gastritis, unspecified, without bleeding; R00.1 Bradycardia, unspecified; I10 Essential (primary) hypertension; E78.00 Pure hypercholesterolemia, unspecified; Z86.010 Personal history of colon polyps; F17.200 Nicotine dependence, unspecified, uncomplicated; Z79.899 Other long term (current) drug therapy
CPT/HCPCS: 43239; 43250; 93005; J2704; 94003; 94150

== ENCOUNTER 2019-08-29 09:13 | Outpatient (CLI) | payer MEDICARE, BC ==
[~2019-08-29 09:13] MED LIST changes: -Atropine Inj 1mg/10ml Syr IV PRN; -DiphenhydrAMINE 50mg/ml Inj IVP PRN; -LR 1000ml 1,000 ML IVLG SCH; -LR 1000ml ONE; -Lidocaine 1% MPF 10mg/ml 5ml ONE; -Midazolam 2mg/2ml Inj IVP PRN; -Propofol 200mg/20ml IV ONE; -fentaNYL 100 mcg/2 mL IV PRN
[2019-08-29 09:23] VITALS: BP 137/67
--- NOTE | 2019-08-29 09:33 | General Progress Note ---
Assessment/Plan Problem List: (1) Colon polyps ICD Codes: K63.5 - Polyp of colon SNOMED: 13125043 (2) Gastric adenoma ICD Codes: D13.1 - Benign neoplasm of stomach SNOMED: 28736859, 31774983 (3) Gastritis ICD Codes: K29.70 - Gastritis, unspecified, without bleeding SNOMED: 8550469 (4) Gastric polyp ICD Codes: K31.7 - Polyp of stomach and duodenum SNOMED: 94123906 Assessment/Plan: EGD and pathology reviewed plan EGD in 9 months Subjective ROS Limited/Unobtainable: Yes Allergies: Coded Allergies: No Known Allergies (Unverified , 08/04/19) Objective Last 24 Hour Vital Signs Date Time Temp Pulse Resp B/P (MAP) Pulse Ox O2 Delivery O2 Flow Rate FiO2 08/29/19 09:23 98.6 72 16 137/67 (90) 98 General Appearance: alert EENT: normal ENT inspection Neck: supple Cardiovascular: normal rate Respiratory/Chest: decreased breath sounds Abdomen: normal bowel sounds, non tender, soft Extremities: non-tender Yves Blum MD Aug 29, 2019 09:33
== END 2019-08-29 11:13 | disposition home or self-care (01) ==
LOC: PAN 09:13
DX: K63.5 Polyp of colon (principal); D13.1 Benign neoplasm of stomach; K29.70 Gastritis, unspecified, without bleeding; K31.7 Polyp of stomach and duodenum
CPT/HCPCS: 99212

== ENCOUNTER → 2020-07-12 | Day surgery (SDC) | payer MEDICARE, BC ==
[~2020-07-12] VITALS: Ht 177.8 cm; Wt 61.2 kg
[2020-07-12] VITALS (8 sets, daily range): BP systolic 132–151; BP diastolic 71–89
[~2020-07-12] MED LIST changes: +LR 1000ml 1,000 ML IVLG SCH; +LR 1000ml ONE; +fentaNYL 100 mcg/2 mL IV ONE; +fentaNYL 100 mcg/2 mL IV PRN
--- NOTE | 2020-07-12 11:05 | Short Stay Surgery H&P ---
History of Present Illness History of Present Illness Chief Complaint see office note HPI Gabriellissethyaneli Yousif Vega is a 70 year old male who was admitted on for Colon Polyps Patient History Allergies: Coded Allergies: No Known Allergies (Unverified , 08/04/19) Medication History Scheduled Amlodipine Besylate (Norvasc), 2.5 MG ORAL DAILY, (Reported) Aspirin* (Aspirin*), 81 MG ORAL DAILY, (Reported) Ergocalciferol (Vitamin D2)* (Vitamin D*), 50,000 UNIT ORAL ONCE A WEEK, (Reported) Omeprazole Magnesium (Prilosec Otc), 20 MG ORAL DAILY, (Reported) Rosuvastatin Calcium (Crestor), 10 MG ORAL DAILY, (Reported) Vitamin B Complex (Vitamin B Complex), 1 CAP ORAL DAILY, (Reported) Physical Exam Vital Signs Last Vital Signs Date Time Temp Pulse Resp B/P (MAP) Pulse Ox O2 Delivery O2 Flow Rate FiO2 07/12/20 10:15 Room Air 07/12/20 10:15 97.8 63 18 151/87 100 Plan Attestation Are the patient's medical conditions optimized for surgery? Yves Blum MD Jul 12, 2020 11:05
--- NOTE | 2020-07-12 11:05 | Pre-Procedure Note/Attestation ---
Pre-Procedure Note/Attestation Complete Prior to Procedure Planned Procedure: not applicable Procedure Narrative: colonoscopy Indications for Procedure Pre-Operative Diagnosis: colon polyps Attestation I attest that I discussed the nature of the procedure; its benefits; risks and complications; and alternatives (and the risks and benefits of such alternatives), prior to the procedure, with the patient (or the patient's legal insurance service representative). I attest that, if there was a reasonable possibility of needing a blood transfusion, the patient (or the patient's legal insurance service representative) was given the [facility] standardized written summary, pursuant to the Cristóbal Ishan Blood Safety Act ([place] Health and Safety Code # 1645, as amended). I attest that I re-evaluated the patient just prior to the surgery and that there has been no change in the patient's H&P, except as documented below: Yves Blum MD Jul 12, 2020 11:05
--- NOTE | 2020-07-12 13:32 | Anethesia Preoperative Eval ---
Anesthesia Pre-op PMH/ROS General Date of Evaluation: Jul 12, 2020 Time of Evaluation: 13:02 Anesthesiologist: Jennifer ASA Score: ASA 2 Mallampati Score Class I : Soft palate, uvula, fauces, pillars visible Class II: Soft palate, uvula, fauces visible Class III: Soft palate, base of uvula visible Class IV: Only hard plate visible Mallampati Classification: Class II Surgeon: Kulwant Diagnosis: Gastric polip Surgical Procedure: EGD Anesthesia History: none Family History: no anesthesia problems Allergies: Coded Allergies: No Known Allergies (Unverified , 08/04/19) Medications: see eMAR Patient NPO?: Yes Past Medical History Cardiovascular: Reports: HTN; Denies: CAD, [place], valve dz, arrhythmia, other Pulmonary: Denies: asthma, COPD, NORMA, other Gastrointestinal/Genitourinary: Reports: GERD; Denies: CRI, ESRD, other Neurologic/Psychiatric: Reports: depression/anxiety; Denies: dementia, CVA, TIA, other Endocrine: Denies: DM, hypothyroidism, steroids, other Hematology/Immune: Denies: anemia, DVT, bleeding disorder, other Musculoskeletal/Integumentary: Reports: OA; Denies: RA, DJD, DDD, edema, other PMH Narrative: as above PSxH Narrative: see H&P Anesthesia Pre-op Phys. Exam Physician Exam Last Vital Signs Date Time Temp Pulse Resp B/P (MAP) Pulse Ox O2 Delivery O2 Flow Rate FiO2 07/12/20 10:15 Room Air 07/12/20 10:15 97.8 63 18 151/87 100 Constitutional: NAD Neurologic: CN 2-12 intact Cardiovascular: RRR, no M/R/G Respiratory: CTA Airway Exam Mallampati Score: Class II MO: limited Neck: stiff ROM: limited Teeth: missing Dentures: no upper, no lower Seb Rodriguez MD Jul 12, 2020 13:31
--- NOTE | 2020-07-12 13:40 | Endoscopy Procedure Note ---
Endoscopy Procedure Note General Indication for Procedure: gastric polyp Procedures Performed: EGD Operative Findings/Diagnosis: gastric polyp Specimen: yes Pt Tolerated Procedure Well: Yes Estimated Blood Loss: none Anesthesia Anesthesiologist: dai Anesthesia: MAC Inserted Devices Implant(s) used?: No GI Core Measures 50 yrs or older w/o bx or poly: Not Applicable 10yrs. F/U recommended: Not Applicable Yves Blum MD Jul 12, 2020 13:40
--- NOTE | 2020-07-12 13:42 | Immediate Post-Op Evaluation ---
Immediate Post-Op Evalulation Immediate Post-Op Evalulation Procedure: EGD Resectiion of recurrent gastric polip Date of Evaluation: Jul 12, 2020 Time of Evaluation: 13:41 IV Fluids: 700 Blood Products: none Estimated Blood Loss: min Urinary Output: none Blood Pressure Systolic: 132 Blood Pressure Diastolic: 76 Pulse Rate: 68 Respiratory Rate: 20 O2 Sat by Pulse Oximetry: 98 Temperature (Fahrenheit): 97.6 Pain Score (1-10): 1 Nausea: No Vomiting: No Complications none Patient Status: awake, patent, none Hydration Status: adequate Seb Rodriguez MD Jul 12, 2020 13:42
--- NOTE | 2020-07-12 17:00 | Procedure Note ---
DATE OF PROCEDURE: 07/12/2020 ENDOSCOPIST: Yudi Newman M.D. ANESTHESIOLOGIST: Seb Rodriguez M.D. PROCEDURE PERFORMED: Upper endoscopy and polypectomy, hemostasis, biopsy, cauterization. INSTRUMENT USED: Olympus adult flexible endoscope. INDICATIONS FOR PROCEDURE: Recurrent gastric polyp. The procedure, risks, benefits, and possible consequences, including hemorrhage, aspiration, perforation and infection, and alternative treatments, were explained to the patient/legal guardian by Dr. Yves Blum and the patient/legal guardian understood and accepted these risks. DESCRIPTION OF PROCEDURE: After informed consent was obtained and the patient was adequately sedated, the Olympus upper endoscope was advanced through the mouth into the second portion of the duodenum and retroflexion maneuver was performed in the stomach. The patient had evidence of persistent polyp seen in the prepyloric region at about 12 o'clock position, maybe just a touch larger than last time, which was about 9 months ago. We started our polypectomy technique. First, we used the snare to cut the pieces of the polyp as much as we could, and then we used [employer] Net to remove the pieces. These were biopsied just to make sure we got adequate diagnostic tissue. Then, we used APC to cauterize the whole area. The patient tolerated the procedure very well without any complication. SUMMARY OF FINDINGS: Persistent gastric polyp, status post polypectomy, cauterization with APC and biopsy. RECOMMENDATIONS: Follow up biopsy results and treat accordingly. Yves Blum M.D. DR: DENIA JOB#: [id number] CC:
== END | disposition home or self-care (01) ==
LOC: GAS 09:42
DX: K31.7 Polyp of stomach and duodenum (principal); D13.1 Benign neoplasm of stomach; Z79.82 Long term (current) use of aspirin; Z79.899 Other long term (current) drug therapy; I10 Essential (primary) hypertension; K21.9 Gastro-esophageal reflux disease without esophagitis; F32.9 Major depressive disorder, single episode, unspecified; F41.9 Anxiety disorder, unspecified; M19.90 Unspecified osteoarthritis, unspecified site
CPT/HCPCS: 43239; 43251; 43255; 93005; 94003; J2704; J3010; J7120; U0002; 94150

== ENCOUNTER 2020-07-23 09:08 | Outpatient (CLI) | payer MEDICARE, BC ==
[~2020-07-23 09:08] MED LIST changes: -LR 1000ml 1,000 ML IVLG SCH; -LR 1000ml ONE; -fentaNYL 100 mcg/2 mL IV ONE; -fentaNYL 100 mcg/2 mL IV PRN
[2020-07-23 09:18] VITALS: BP 139/78
--- NOTE | 2020-07-23 10:03 | General Progress Note ---
Subjective ROS Limited/Unobtainable: Yes Allergies: Coded Allergies: No Known Allergies (Unverified , 08/04/19) Objective Last 24 Hour Vital Signs Date Time Temp Pulse Resp B/P (MAP) Pulse Ox O2 Delivery O2 Flow Rate FiO2 07/23/20 09:18 97.1 68 16 139/78 100 General Appearance: alert EENT: normal ENT inspection Neck: supple Cardiovascular: normal rate Respiratory/Chest: lungs clear Abdomen: normal bowel sounds, non tender, soft Extremities: non-tender Assessment/Plan Assessment/Plan: Assessment/Plan Problem List: (1) Colon polyps ICD Codes: K63.5 - Polyp of colon SNOMED: 31110889 (2) Gastric adenoma ICD Codes: D13.1 - Benign neoplasm of stomach SNOMED: 49642287, 19190528 (3) Gastritis ICD Codes: K29.70 - Gastritis, unspecified, without bleeding SNOMED: 7400690 (4) Gastric polyp ICD Codes: K31.7 - Polyp of stomach and duodenum SNOMED: 75058130 Assessment/Plan: EGD and pathology reviewed plan EGD in 6 months Yves Blum MD Jul 23, 2020 10:03
== END 2020-07-23 11:08 | disposition home or self-care (01) ==
LOC: PAN 09:08
DX: K63.5 Polyp of colon (principal); D13.1 Benign neoplasm of stomach; K29.70 Gastritis, unspecified, without bleeding; K31.7 Polyp of stomach and duodenum
CPT/HCPCS: 99212

== ENCOUNTER 2020-11-19 09:53 | Outpatient (CLI) | payer MEDICARE, BC ==
--- NOTE | 2020-11-19 11:07 | General Progress Note ---
Subjective ROS Limited/Unobtainable: Yes Allergies: Coded Allergies: No Known Allergies (Unverified , 08/04/19) Objective General Appearance: alert EENT: normal ENT inspection Neck: supple Cardiovascular: normal rate Respiratory/Chest: decreased breath sounds Abdomen: normal bowel sounds, non tender, soft Extremities: non-tender Assessment/Plan Assessment/Plan: Assessment/Plan Problem List: (1) Colon polyps ICD Codes: K63.5 - Polyp of colon SNOMED: 80882763 (2) Gastric adenoma ICD Codes: D13.1 - Benign neoplasm of stomach SNOMED: 52292766, 97864274 (3) Gastritis ICD Codes: K29.70 - Gastritis, unspecified, without bleeding SNOMED: 2309926 (4) Gastric polyp ICD Codes: K31.7 - Polyp of stomach and duodenum SNOMED: 60130515 Assessment/Plan: EGD and pathology reviewed plan EGD on 01/27 also colonosopy Yves Blum MD Nov 19, 2020 11:07
== END 2020-11-19 11:15 | disposition home or self-care (01) ==
LOC: PAN 09:53
DX: K63.5 Polyp of colon (principal); D13.1 Benign neoplasm of stomach; K29.70 Gastritis, unspecified, without bleeding; K31.7 Polyp of stomach and duodenum
CPT/HCPCS: 99212